=== PATIENT | female | born 1950 | race Caucasian/White ===

== ENCOUNTER 2022-04-25 05:52 | Day surgery (SDC) | payer MEDICARE, BC ==
--- NOTE | 2022-04-24 13:13 | HP ---
HISTORY AND PHYSICAL DATE OF SURGERY: 04/25/2022. HISTORY OF PRESENT ILLNESS: Laura Goodrich is a 72-year-old patient seen with symptomatic left hip osteoarthritis. We discussed options for treatment. She elected to proceed with direct anterior left total hip arthroplasty. Consent regarding the procedure was obtained. PAST MEDICAL HISTORY: Noncontributory. SURGICAL HISTORY: Unicompartmental arthroplasty of the left knee. DAILY MEDICATIONS: Motrin. ALLERGIES: None. SOCIAL HISTORY: She denies tobacco use. PHYSICAL EVALUATION OF LEFT HIP: There is limited range of motion with severe pain, diffuse tenderness about the hip girdle. Straight-leg raise negative. Hip impingement sign is positive. Her distal neurovascular exam is intact. RADIOGRAPHS: Radiographs of the left hip reveal severe osteoarthritic changes. IMPRESSION: Left hip osteoarthritis. PLAN: Direct anterior left total hip arthroplasty. MMODL / IJN: [id number] /
[~2022-04-25 05:52] MED LIST: ACETAMINOPHEN TAB 500 MG TAB PO PRN; MELOXICAM 7.5 MG TAB PO PRN; TRANEXAMIC ACID IN NACL,ISO-OS 1,000 MG in SALINE 1 100ML.BAG IVPB PRN
[2022-04-25] MEDS ORDERED: DEXAMETHASONE SOD PHOSPHATE 4 MG/ML 1 ML VIAL IV ONE (06:16)
[2022-04-25] MEDS ORDERED: LIDOCAINE 1% (10MG/ML) FOR IV START INTRADERMA PRN (06:16)
[2022-04-25] MEDS ORDERED: ONDANSETRON 4 MG/2 ML VIAL IVP ONE ×2 (06:16→12:00)
[2022-04-25] MEDS: LACTATED RINGERS 1,000 ML IV SCH ×3 (06:40→22:16)
[2022-04-25] MEDS ORDERED: fentaNYL (PF) 50 MCG/ML 2 ML AMP IVP PRN (07:00)
[2022-04-25] MEDS ORDERED: FAMOTIDINE 20 MG/2 ML VIAL IV PRN (07:00)
[2022-04-25] MEDS ORDERED: METOCLOPRAMIDE 5 MG/ML 2 ML VIAL IVP PRN (07:00)
[2022-04-25] MEDS: MIDAZOLAM 2 MG/2 ML VIAL IV PRN ×2 (07:12→07:16)
[2022-04-25] MEDS ORDERED: ROCURONIUM 10 MG/ML (5 ML VIAL) IV ONE (07:25)
[2022-04-25] MEDS ORDERED: MIDAZOLAM 2 MG/2 ML VIAL ONE (07:25)
[2022-04-25] MEDS ORDERED: LIDOCAINE 2% INJ 20 MG/ML (2 ML VIAL) ONE (07:25)
[2022-04-25] MEDS ORDERED: NEOSTIGMINE 1 MG/ML 10 ML VIAL ONE (07:25)
[2022-04-25] MEDS ORDERED: TRANEXAMIC ACID IN NACL,ISO-OS 1,000 MG/100 ML BAG ONE (07:25)
[2022-04-25] MEDS ORDERED: GLYCOPYRROLATE 0.2 MG/ML 2 ML VIAL ONE (07:25)
[2022-04-25] MEDS ORDERED: fentaNYL (PF) 50 MCG/ML 2 ML AMP ONE (07:25)
[2022-04-25] MEDS ORDERED: PROPOFOL 10 MG/ML 20 ML VIAL IV ONE (07:25)
[2022-04-25] MEDS ORDERED: SUCCINYLCHOLINE CHLORIDE 200 MG/10 ML VIAL IV ONE (07:25)
[2022-04-25] MEDS ORDERED: ceFAZolin 1,000 MG in SODIUM CHLORIDE 0.9% 1,000 ML IRRIGATION ONE (08:03)
[2022-04-25] MEDS ORDERED: LACTATED RINGERS 1,000 ML IV ONE ×3 (09:04→15:00)
--- NOTE | 2022-04-25 09:08 | P.OP ---
Date of Procedure: 04/25/22 Preoperative Diagnosis: Left hip osteoarthritis Postoperative Diagnosis: Left hip osteoarthritis Procedure(s) Performed: Direct anterior left total hip arthroplasty Implants: 1. Depuy Corail 125 standard collar size 13 press-fit femoral stem 2. Depuy pinnacle 52 mm press-fit acetabular shell 3. Depuy pinnacle neutral polyethylene acetabular liner 36 mm ID 52 mm OD 4. Depuy metal femoral head 36 mm -2 Anesthesia: GETA Surgeon: Brando Rangel [place] Machine Operator #1: Keyur Bradshaw Estimated Blood Loss (ml): 65 Pathology: other (Femoral head) Condition: stable Disposition: PACU Indications for Procedure: 72-year-old patient seen with symptomatic left hip osteoarthritis. After treatment options were discussed, she elected to proceed with direct anterior left total hip arthroplasty. Operative Findings: See description of procedure Description of Procedure: The patient was taken to the operative suite. Patient underwent a general anesthetic by the department of anesthesia. Patient was then transferred to the [place] table. Patient was given preoperative IV antibiotics and TXA. Both lower extremities were placed in standard leg spars. The hip was then prepped and draped in the normal sterile orthopedic fashion. A standard anterior incision was made beginning 3 cm lateral and 1 cm distal to the ASIS extending 10 cm. Dissection was then carried down through the subcutaneous soft tissues down to the fascia overlying the tensor fascia landry. An incision was now made through the fascia. Careful dissection was taken down exposing the tensor fascia landry muscle. A Cobra retractor was now placed along the medial femoral neck and a second one along the lateral femoral neck. The venous circumflex vessels were now identified, cauterized and clipped. We identified the anterior hip capsule. An incision was made through the hip capsule along the lateral border. I performed a partial anterior capsulectomy. Retractors were now placed around the femoral neck itself. A femoral neck cut was now made with a sagittal saw. It was completed with an osteotome at the lateral neck area. The femoral head was now removed without difficulty. The extremity was now rotated to 60 of external rotation. It was locked in position. Residual labrum was now debrided out. Serial reaming was performed of the acetabulum while Wesley MARTÍNEZ assisted holding an anterior retractor for exposure. Once we reached the appropriate size and a trial was position and fit nicely. The appropriate size was now chosen opened and made available. It was introduced into the acetabulum without difficulty. The C-arm/fluoroscopy was now brought into the operative field. We made sure we had a true AP pelvic view. We now under direct C- arm/fluoroscopy introduced into the acetabular component with appropriate version and inclination. I held the cup in appropriate position well Wesley MARTÍNEZ used a mallet to seat the acetabular component. I noted the component now to be well seated and stable. Acetabular cup introduce her was removed. The C-arm was pulled back. An appropriate liner was introduced and clicked into position. It was felt to be stable. At this point retractors were removed. The extremity was now placed into 140 external rotation with no traction. The leg was now dropped to the ground and adducted. Appropriate retractors were now positioned along the proximal femur. We also placed our femoral look into position. Additional capsular releasing was performed to gain access to the proximal femur. We now used a box osteotome. A canal finder was now utilized. Serial broaching was now performed with the assistance of Wesley MARTÍNEZ tapping the broaches down with a mallet while held the broach in appropriate rotation and position. This was done until we reached the appropriate size with good overall rotational stability. Appropriate calcar planing was performed. A trial head/neck was placed into position. The hip was now reduced. The C- arm/fluoroscopy was brought back into the operative field. I obtained an AP pelvis was demonstrated adequate leg length alignment. The trial components appeared adequately sized and adequately positioned. The C-arm/fluoroscopy was pulled back. Retractors were repositioned and the hip was dislocated. The leg was again taken down to the ground and adducted. Appropriate retractors were repositioned as well as the femoral hook. All trial components were removed. The femoral implant was opened along with the femoral head. The femoral implant was introduced on the appropriate handle into our pre-broached area. I held the component position well Wesley MARTÍNEZ used a mallet to seat the femoral component. The femoral component was now noted to be well seated and stable.. The femoral head was introduced with good positioning and fixation noted. Retractors were now removed. The hip was now reduced. There appeared be good positioning of the hip confirmed on intraoperative fluoroscopy. Spot films were obtained to document this. A second gram of TXA was given. The deep and superficial soft tissues were infiltrated with local analgesic. Bipolar cautery had been utilized intermittently through the procedure for hemostasis. The wound was irrigated copiously with pulse lavage mechanical irrigation. The fascia was repaired with Vicryl suture. The subcutaneous soft tissues were repaired in layers with Vicryl suture. The skin was approximated with pernio/Dermabond. Sterile dressings were applied. Patient was then awakened, transferred to a bed and taken to recovery in stable condition. Wesley MARTÍNEZ assisted with the complex procedure.
[2022-04-25] MEDS ORDERED: NALOXONE 0.4 MG/ML 1 ML VIAL IV PRN (09:09)
[2022-04-25] MEDS ORDERED: HYDROcodone/APAP 5-325MG 1 EACH TAB PO PRN (09:09)
[2022-04-25] MEDS ORDERED: HYDROmorphone 0.5 MG/0.5 ML SYRINGE IVP PRN ×2 (09:09)
[2022-04-25] MEDS ORDERED: ONDANSETRON 4 MG/2 ML VIAL IVP PRN (09:09)
--- NOTE | 2022-04-25 09:10 | FL ---
EXAMINATION TYPE: FL guidance operating room, XR Hip Limited LT DATE OF EXAM: 04/25/2022 CLINICAL HISTORY: Left hip pain and osteoarthritis. TECHNIQUE: Fluoroscopy. Intraoperative limited views left hip COMPARISON: None. FINDINGS: Fluoroscopic guidance was provided during left hip replacement procedure performed by Dr. Rangel. A total of 10 seconds of fluoroscopic time was utilized during the procedure and 2 spot i mages was acquired. Intraoperative images obtained show metallic hardware from total left hip arthroplasty satisfactory i n position on frontal projection. IMPRESSION: As Above. TOTAL DAP = .4766Gycm^2
[2022-04-25 09:50] VITALS: RESP 16
[2022-04-25] MEDS: HYDROmorphone 0.5 MG/0.5 ML SYRINGE IVP PRN ×4 (10:00→19:35)
[2022-04-25] MEDS ORDERED: METOCLOPRAMIDE 5 MG/ML 2 ML VIAL IVP ONE (12:31)
[2022-04-25] MEDS ORDERED: ACETAMINOPHEN TAB 325 MG TAB PO PRN (13:38)
[2022-04-25] MEDS ORDERED: traMADol 50 MG TAB PO PRN (13:38)
[2022-04-25] MEDS: HYDROcodone/APAP 7.5-325MG 1 EACH TAB PO PRN (20:58)
[2022-04-25] MEDS ORDERED: ENOXAPARIN 30 MG/0.3 ML SYRINGE SQ SCH (21:00)
[2022-04-25] MEDS ORDERED: SENNOSIDES-DOCUSATE SODIUM 1 EACH TAB PO SCH (21:00)
[2022-04-26] MEDS: HYDROmorphone 0.5 MG/0.5 ML SYRINGE IVP PRN (00:06)
[2022-04-26] MEDS: LACTATED RINGERS 1,000 ML IV SCH ×2 (00:07→05:01)
[2022-04-26 03:35] VITALS: PULSE 80
[2022-04-26] MEDS: HYDROcodone/APAP 7.5-325MG 1 EACH TAB PO PRN ×2 (03:41→10:48)
[2022-04-26 07:57] VITALS: BP 102/57; TEMP 98.6
[2022-04-26] MEDS ORDERED: FAMOTIDINE 20 MG TAB PO SCH (09:00)
[2022-04-26] MEDS ORDERED: MAGNESIUM OXIDE 400 MG TAB PO SCH (09:00)
[2022-04-26] MEDS ORDERED: CHOLECALCIFEROL 25 MCG (1000 IU) TABLET PO SCH (09:00)
[2022-04-26] MEDS ORDERED: ENOXAPARIN 40 MG/0.4 ML SYRINGE SQ SCH (09:00)
[2022-04-26] MEDS ORDERED: MULTIVITAMINS, THERA 1 EACH TAB PO SCH (09:00)
[2022-04-26] MEDS ORDERED: CYANOCOBALAMIN 500 MCG TAB PO SCH (09:00)
[2022-04-26 09:58] LABS: Basophils # (A) 0.03 X 10*3/uL (0.00-0.10); Basophils % (A) 0.3 %; Eosinophils # (A) 0.02 X 10*3/uL (0.04-0.35); Eosinophils % (A) 0.2 %; Immature Grans, Automated 0.2 %; Lymphocytes # (A) 1.79 X 10*3/uL (0.90-5.00); MCH 31.3 pg (27.0-32.0); MCHC 32.3 g/dL (32.0-37.0); MCV 97.2 fL (80.0-97.0); Mean Platelet Volume 9.4 fL (9.5-12.2); Monocytes # (A) 0.92 X 10*3/uL (0.20-1.00); Monocytes % (A) 9.2 %; NRBC Per 100 WBC 0 /100 WBCS (0.0-0.0); Neutrophils # (A) 7.19 X 10*3/uL (1.80-7.70); Neutrophils % (A) 72.1 %; Platelet Count 219 X 10*3/uL (140-440); RBC 3.19 X 10*6/uL (4.10-5.20); RDW 12.8 % (11.5-14.5); WBC 9.97 X 10*3/uL (4.50-10.00)
--- NOTE | 2022-04-26 11:32 | P.DS ---
Providers Date of admission: 04/25/2022 Expected date of discharge: 04/26/22 Attending physician: Branod Rangel Consults: 04/25/22 09:09 Consult Physician Routine Consulting Provider: Tim Silva Consult Reason/Comments: Medical management Do you want consulting provider notified?: Yes Primary care physician: Kt Jackman MD Hospital Course: Date of admission: 04/25/2022 Date of discharge: 04/26/2022 Admission diagnosis: Left hip osteoarthritis Discharge diagnosis: same Attending physician: Dr. Rangel Surgical procedures: Left total hip arthroplasty Brief history: Patient is a 72-year-old female with a history of progressive primary left hip osteoarthritis. At this point patient has failed conservative treatment measures and has opted to proceed with a elective left total hip arthroplasty. Hospital course: Details of patient's surgery can be found in operative report. Patient tolerated the procedure well and was subsequently transported to orthopedic floor. Patient's orthopeidc and medical care was provided daily. Patient had daily laboratory tests performed for evaluation of overall blood counts. Patient had daily physical therapy to include strengthening range of motion as well as education with walker ambulation. Patient was treated with Lovenox for their postoperative DVT prophylaxis during their inpatient stay. Patient was noted to have a relatively uneventful postoperative course. Patient reported satisfactory pain control with oral pain medications by postoperative day 1. Patient showed satisfactory progress with physical therapy. Patient moved steadily through the program and had no difficulty meeting the goals by postoperative day 1. Given patient's otherwise satisfactory course and having met physical therapy goals, plan is to discharge patient home with health services on postoperative day 1. Discharge condition/disposition: Patient will be discharged home with [facility] in stable condition. Discharge medications: Instructions are given on resumption of patient's normal daily medications per primary care recommendation, in addition patient will be prescribed Wisdom; aspirin 81 mg twice a day 30 days; senna; Zofran. Orthopedic Discharge Instructions: 1. Wound care and infection precautions, keep incision dry and covered while showering, no lotions, creams, moisturizers. No soaking, pools, hot tubs. Do not scrub over incision. 2. Weight-bear as tolerated with walker / cane until follow-up. 3. Ice and elevate when necessary. Do not exceed 20 minutes per hour with ice pack. 4. Utilize compression sleeve until seen at first follow up appointment. 5. Pain meds and anticoagulants per prescription. 6. Pain medication has potential to cause constipation. Increase oral fluid and fiber intake. Contact primary care provider if you have not had a bowel movement within 48 hours after discharge. 7. No anti-inflammatory medication until discussed at first post operative visit, this including Motrin, Aleve, Mobic, Diclofenac 8. Follow up in office at 2 weeks postop with Wesley Bradshaw PA-C / Zohaib Sexton PA-C 9. Follow up with your primary care doctor 7-10 days after discharge. 10. Contact [facility] with any questions, . Keep incision clean, dry, intact. While showering, cover dressing with Saran wrap. Dressing may be removed in 7 days, 05/02/2022. Medications: Wisdom 5 mg/325 mg; senna; aspirin 81 mg twice a day 30 days Assessment: Left hip osteoarthritis Procedures: Left total hip arthroplasty Patient Condition at Discharge: Good Plan - Discharge Summary Discharge Rx Participant: No New Discharge Prescriptions: New Sennosides/Docusate Sodium [Senna Plus 8.6-50 mg Softgel] 1 each PO DAILY #20 capsule Aspirin [Adult Low Dose Aspirin EC] 81 mg PO BID #60 tab Ondansetron [Zofran] 4 mg PO Q12HR PRN #6 tab PRN Reason: Nausea HYDROcodone/APAP 5-325MG [Wisdom 5-325] 1 - 2 tab PO Q6HR PRN #42 tab PRN Reason: Pain No Action flaxseed oiL [[place]-3 Flaxseed Oil] 14 mg PO DAILY Magnesium 250 mg PO DAILY Cyanocobalamin (Vitamin B-12) [Vitamin B-12] 5,000 mcg PO DAILY Cholecalciferol [Vitamin D3 (25 Mcg = 1000 Iu)] 50 mcg PO DAILY Multivit-Min/Iron/Folic/Lutein [Centrum Silver Women Tablet] 1 each PO DAILY Calcium Carb/Vitamin D3/Vit K1 [Viactiv 650 mg-12.5 Mcg Chew] 1 tab PO DAILY Biotin [Biotin Disolve] 10,000 mcg PO DAILY Ibuprofen [Motrin Ib] 200 mg PO Q6H PRN PRN Reason: Pain Discharge Medication List Biotin [Biotin Disolve] 10,000 mcg PO DAILY 04/20/22 [History] Calcium Carb/Vitamin D3/Vit K1 [Viactiv 650 mg-12.5 Mcg Chew] 1 tab PO DAILY 04/20/22 [History] Cholecalciferol [Vitamin D3 (25 Mcg = 1000 Iu)] 50 mcg PO DAILY 04/20/22 [Hi story] Cyanocobalamin (Vitamin B-12) [Vitamin B-12] 5,000 mcg PO DAILY 04/20/22 [History] Ibuprofen [Motrin Ib] 200 mg PO Q6H PRN 04/20/22 [History] Magnesium 250 mg PO DAILY 04/20/22 [History] Multivit-Min/Iron/Folic/Lutein [Centrum Silver Women Tablet] 1 each PO DAILY 04/20/22 [History] flaxseed oiL [[place]-3 Flaxseed Oil] 14 mg PO DAILY 04/20/22 [History] Aspirin [Adult Low Dose Aspirin EC] 81 mg PO BID #60 tab 04/26/22 [Rx] HYDROcodone/APAP 5-325MG [Wisdom 5-325] 1 - 2 tab PO Q6HR PRN #42 tab 04/26/22 [Rx] Ondansetron [Zofran] 4 mg PO Q12HR PRN #6 tab 04/26/22 [Rx] Sennosides/Docusate Sodium [Senna Plus 8.6-50 mg Softgel] 1 each PO DAILY #20 capsule 04/26/22 [Rx] [facility]Ref[facility] - As Needed Kt Jackman MD [Primary Care Provider] - 1 Week Keyur Bradshaw PAC [PHYSICIAN COURT RECORDING MONITOR] - 05/11/22 4:00 pm Patient Instructions/Handouts: Anterior Hip Replacement (DC) Activity/Diet/Wound Care/Special Instructions: Orthopedic Discharge Instructions: 1. Wound care and infection precautions, keep incision dry and covered while showering, no lotions, creams, moisturizers. No soaking, pools, hot tubs. Do not scrub over incision. 2. Weight-bear as tolerated with walker / cane until follow-up. 3. Ice and elevate when necessary. Do not exceed 20 minutes per hour with ice pack. 4. Utilize compression sleeve until seen at first follow up appointment. 5. Pain meds and anticoagulants per prescription. 6. Pain medication has potential to cause constipation. Increase oral fluid and fiber intake. Contact primary care provider if you have not had a bowel movement within 48 hours after discharge. 7. No anti-inflammatory medication until discussed at first post operative visit, this including Motrin, Aleve, Mobic, Diclofenac 8. Follow up in office at 2 weeks postop with Wesley Bradshaw PA-C / Zohaib Sexton PA-C 9. Follow up with your primary care doctor 7-10 days after discharge. 10. Contact [facility] with any questions, . Keep incision clean, dry, intact. While showering, cover dressing with Saran wrap. Dressing may be removed in 7 days, 05/02/2022. Medications: Wisdom 5 mg/325 mg; senna; aspirin 81 mg twice a day 30 days Discharge Disposition: HOME WITH HOME HEALTH SERVICES
--- NOTE | 2022-04-26 12:17 | P.PN ---
Subjective Progress Note Date: 04/26/22 Principal diagnosis: Left hip osteoarthritis Patient was seen at bedside this morning sitting up at the edge of bed with her present during encounter. Patient says she did get up with physical therapy this morning and walked out into the hallway and up and down steps. Araceli leonid says she does have a walker for home and is looking forward to going home later today. Patient says she has not had bowel movement yet, however, patient says she has been passing gas. Patient says she has urinated several times since surgery yesterday. Patient says she didn't feel a bit nauseous yesterday after surgery as well as this morning. Patient is lying she didn't have significant nausea medication for when she goes home. Patient rates pain as 6/10 currently. Patient denies chest pain, fever, shortness breath, nausea, vomiting, change in vision, loss of bladder control. Objective - Vital Signs Vital signs: Vital Signs Temp 98.6 F 04/26/22 07:20 Pulse 80 04/26/22 07:20 Resp 16 04/26/22 07:20 BP 102/57 04/26/22 07:20 Pulse Ox 97 04/26/22 07:20 FiO2 Intake & Output 04/25/22 04/26/22 04/26/22 18:59 06:59 18:59 Intake Total 2651 1060 Output Total 65 Balance 2586 1060 Weight 66.2 kg Intake: IV 2651 Intake, IV Titration 1060 Amount Lactated Ringers 1,000 ml 960 @ 80 mls/hr IV .[id number] JESS Rx#:[id number] ceFAZolin 2 gm In Sodium 100 Chloride 0.9% 50 ml @ 100 mls/hr IVPB Q8H JESS Rx#: [id number] Output: Estimated Blood Loss 65 Other: # Voids 1 1 - Exam Left hip: Incision is clean, dry, and intact. The silver foam dressing is in good condition. There is minimal soft tissue swelling and ecchymosis surrounding the medial and lateral aspects of the incision. Calf is soft, no tenderness with palpation. Plantar flexion, dorsiflexion, EHL, FHL are intact. Sensory exam to light touch throughout the extremity is intact, dorsal pedis pulses 2+. - Labs CBC & Chem 7: 04/26/22 05:25 Labs: Abnormal Lab Results - Last 24 Hours (Table) 04/26/22 Range/Units 05:25 RBC 3.19 L (4.10-5.20) X 10*6/uL Hgb 10.0 L (12.0-15.0) g/dL Hct 31.0 L (37.2-46.3) % MCV 97.2 H (80.0-97.0) fL MPV 9.4 L (9.5-12.2) fL Eosinophils # 0.02 L (0.04-0.35) X 10*3/uL Assessment and Plan Assessment: 1. Left hip osteoarthritis Postoperative day 1 status post left total hip arthroplasty Plan: 1. Left hip osteoarthritis - left total hip arthroplasty performed yesterday, 04/25/2022. Patient stable at bedside this morning. Discharge home today with health services. Patient does have a walker for home. 2. Appreciate medical management 3. Pain management - [place] 4. DVT prophylaxis - Lovenox in hospital. Going home with aspirin 81 mg twice a day 30 days 5. GI prophylaxis - senna 6. PT/OT - weightbearing as tolerated with walker 7. Encourage incentive spirometer use 8. Discharge planning - home with health services today Time with Patient: Less than 30
[2022-04-26 12:25] LABS: Appearance,Urine Clear (Clear); Bilirubin,Urine Negative (Negative); Blood,Urine Negative (Negative); Color,Urine Yellow; Glucose,Urine (UA) Negative (Negative); Ketones,Urine 1+ (Negative); Leukocyte Esterase,Urine Negative (Negative); Nitrite,Urine Negative (Negative); PH, Urine 5.5 (5.0-8.0); Protein,Urine Negative (Negative); Specific Gravity,Urine 1.018 (1.001-1.035); Urobilinogen,Urine <2.0 mg/dL (<2.0)
--- NOTE | 2022-04-26 14:35 | CONS ---
CONSULTATION REASON FOR CONSULTATION: Regarding DJD and other medical issues requested by Orthopedic Surgery. HISTORY OF PRESENT ILLNESS: This is a 72-year-old woman with a past medical history of DJD and underwent left total hip joint arthroplasty by Orthopedic Surgery. The patient is complaining some shaking at this time. There is no history of any fever, rigors, or chills at this time. White count is normal. No history of dysuria or cough at this time. PAST MEDICAL HISTORY: Reviewed, include DJD. Rest of the history and rest of the chart are reviewed. HOME MEDICATIONS: Reviewed include magnesium, vitamin B12. Doses and rest of medications noted. ALLERGIES: None. FAMILY HISTORY: History of cancer. SOCIAL HISTORY: No history of smoking or alcohol. REVIEW OF SYSTEMS: A 14-point review is negative except as mentioned earlier. PHYSICAL EXAMINATION: VITAL SIGNS: Pulse is 80, blood pressure 102/57, respirations 16. NECK: No jugular venous distention. CARDIOVASCULAR: S1 and S2 muffled. CHEST: Clear to auscultation. ABDOMEN: Soft, nontender. LEGS: Status post left hip arthroplasty. NERVOUS SYSTEM: No focal deficits. SKIN: No ulcer, rash, bleeding. LABORATORY DATA: Labs are reviewed. ASSESSMENT: 1. Status post left total hip joint arthroplasty. 2. History of degenerative joint disease. 3. History of plantar fasciitis. 4. History of appendectomy. 5. Full code. RECOMMENDATIONS: This is a 72-year-old woman who presented after surgery. The patient is stable. I would recommend to resume the home medications. DVT prophylaxis. I would also recommend UA with micro and follow up with primary physician after discharge. Thank you for letting us to participate in the care of this patient. MMODL / IJN: [id number] /
== END 2022-04-26 13:00 | disposition home health service (06) ==
LOC: OR 05:52 → 4SSUR 09:10 → OR 04-26 13:00
PROVIDERS: ATTEND Orthopaedic Surgery
DX: M16.12 Unilateral primary osteoarthritis, left hip (principal); Z96.642 Presence of left artificial hip joint
CPT/HCPCS: 94760; 97161; 85025; 81003; 88300; 73501; 27130; C1776; J2250; J1100; J2765; J0690 ×3; J2405; J1650; J1170 ×2; 86850; 86900; 86901